=== PATIENT | male | born 1960 | race Caucasian/White ===

== ENCOUNTER 2023-08-15 18:24 | Outpatient (CLI) | payer OTHER, SELFPAY | END 2023-08-15 18:25 | disposition home or self-care (01) | LOC: NFLDUCREF 18:25 | PROVIDERS: PCP Family Medicine; Visit Provider Nurse Practitioner Family | DX: M79.605 Pain in left leg (principal); M79.89 Other specified soft tissue disorders | CPT/HCPCS: 85379 ==

== ENCOUNTER 2023-08-17 05:33 | Inpatient (IN) | payer OTHER, SELFPAY ==
[2023-08-17] VITALS (10 sets, daily range): BP systolic 114–140; BP diastolic 78–95; PULSE 63–83; RESP 16–18; TEMP 36.2–37; O2SAT 95–98; BMI 34.9
--- NOTE | 2023-08-17 06:09 | CRLHL7_ITS ---
For Patients: As a result of the Century Cures Act, medical imaging exams and procedure reports are released immediately into your electronic medical record. You may view this report before your referring provider. If you have questions, please contact your health care provider. INDICATION: Swelling, chronic DVT, on blood thinners COMPARISON: None available. All priors performed at an outside facility TECHNIQUE: Terry-scale, color, and duplex Doppler imaging of the examined veins. Compression and augmentation attempted where anatomically and clinically feasible. FINDINGS: Laterality: Left Examined veins: Common femoral, femoral, popliteal, peroneal, posterior tibial Greater saphenous Nonocclusive thrombus in the left proximal peroneal vein. This is asymmetric and may be chronic. Otherwise, the examined veins are patent with normal color Doppler flow and a normal venous waveform on duplex Doppler. Where possible, there is normal compression and normal augmentation of flow. The right common femoral vein was sampled for comparison and is normal. No waveform abnormalities to suggest central occlusion. IMPRESSION: Nonocclusive left proximal peroneal vein deep vein thrombus. Recommend comparison to any available prior imaging. Dictated by Jania Bee MD @ 08/17/2023 7:18:19 AM (Electronically Signed)
--- NOTE | 2023-08-17 06:12 | ED_ITS ---
HPI - General Adult General Chief complaint: Edema Stated complaint: cellulitis Time Seen by Provider: 08/17/23 05:50 Source: patient and family Mode of arrival: ambulatory Limitations: no limitations History of Present Illness HPI narrative: 63-year-old male presents to the emergency department with a 5-6 day history of tenderness and swelling in the left lower extremity. Does have a history of prior DVT in this leg and struggles with chronic edema. He has even been told that there was probably some chronic clot in that leg as well, last ultrasound was definitely over a year ago. He is on chronic Eliquis as a result. 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 He noticed feeling achy with chills on Sunday and then increased swelling in the leg. Redness has increased over the last few days. He was evaluated at [facility] 2 days ago, diagnosed with cellulitis. It sounds as though some blood work was performed but no ultrasound of the leg. He was told that his blood clotting blood tests were a little high. Uncertain of his baseline level though. It sounds like he was started on Keflex because he reports that he was told to take it 4 times daily. He started approximately 8:00 p.m. which is certainly over 24 hours from now but just barely not quite 36 hours. He reports that he continues to feel worse, the leg appears to be getting more red and more swollen. His shows me pictures from the previous day and her previously marked area of cellulitis and it certainly is expanding. Leg is tender but not severely painful. He is not diabetic, has no history of MRSA. He is not on any immunosuppressants. He does not believe that he is running true fevers. No specific trauma or injury, no broken skin. Did start the antibiotics and is taking them as prescribed. Has not needed any specific pain medication. Past medical history notable for a history of dermatomyositis, no longer on treatment for this. He also has the chronic DVT in the left leg. His only home medication is Eliquis. Denies any allergies. Nonsmoker. ROS is notable for the musculoskeletal, generalized symptoms as described above, otherwise denies times 12 systems. Related Data Home Medications Medication Instructions Recorded Confirmed apixaban 2.5 mg tablet (Eliquis) 2.5 mg PO BID 08/15/23 08/15/23 Previous Rx's Medication Instructions Recorded cephalexin 500 mg capsule 500 mg PO QID 10 days #40 caps 08/15/23 Allergies Allergy/AdvReac Type Severity Reaction Status Date / Time No Known Drug Allergies Allergy Verified 08/15/23 18:15 PFSH [facility] Social History Non-prescribed substance use: denies use Exam Const: Vital Signs, click to edit/add: Vital Signs - 24 hr 08/17/23 05:37 08/17/23 07:16 Temperature 97.2 F L Pulse Rate [Left P ulse Oximeter] 83 71 Respiratory Rate 16 18 Blood Pressure [Ri ght Upper Arm] 123/79 125/78 Pulse Oximetry 96 96 Oxygen Delivery Me thod Room Air Room Air Documenting provider has reviewed patient's vital signs: yes Common normals: no apparent distress and alert General appearance: cooperative, comfortable and well kempt Orientation/consciousness: Yes awake HENMT: Common normals: normocephalic and head/scalp atraumatic Head and scalp: normocephalic and atraumatic Face and sinus: normal facial exam Mouth: oral and palatal mucosa normal Eye: Common normals: conjunctivae normal General eye: normal appearance of both eyes Conjunctiva: conjunctiva(e) normal Neck & C-Spine: Common normals: full ROM General: normal visual inspection Resp: Common normals: normal respiratory effort, no use of accessory muscles and clear to auscultation bilaterally Effort & inspection: able to speak in complete sentences Auscultation: clear to auscultation bilaterally Cardio: Common normals: regular rate, regular rhythm, S1 normal heart sound, S2 normal heart sound and no murmurs Rate: regular rate Rhythm: regular rhythm Heart sounds: S1 normal and S2 normal GI: Common normals: Normal to inspection, nondistended, normoactive bowel sounds present, soft to palpation, non-tender, no hepatosplenomegaly and no masses Palpation: soft and no hepatosplenomegaly Extremity: Other: Right leg grossly normal in appearance. Left leg swollen, marked redness and warmth. Early skin changes and darkening concerning for early blister formation. Still has good capillary refill in the toes and good pedal pulses. Compared to the picture shown from his yesterday, the redness and swelling on the foot has certainly increased. No effusions in the knee or ankle joint. He can move these joints with no difficulty. Redness does not extend above the knee but does track along cited. No tenderness in the popliteal fossa. Neuro: Sensorium/orientation: awake and alert Speech: speech normal Motor exam: strength 5/5 throughout and no movement abnormalities noted Psych: Appearance: well kempt Activity/motor behavior: appropriate eye contact Mood and affect: euthymic mood Insight: insight good Judgement: judgment good Skin: Narrative: Redness, cellulitic area to the left lower extremity only, no other affected areas noted. Course Course ED Course: Known cellulitis with increased redness and swelling for the past 36 hours. It may be a little early to declare outpatient oral antibiotic failure but I do have significant concerns. Risk factors with chronic DVT may impair healing. Patient does not have significant risk factors for MRSA. I would like to draw some basic labs, get a repeat ultrasound of the left lower extremity, start Unasyn and tentatively plan for admission based on labs. Await findings. Trung wrap extremity. Reevaluation(s) Time of Reevaluation #1: 07:21 Reevaluation #1: spoke with radiology, agree with chronic, non occulusive clot. reviewed findings with patient and hospitalist. will admit for further care. Vital Signs Vital signs: Initial Vital Signs Temperature 97.2 F L 08/17/23 05:37 Temperature Source Temporal Artery Scan 08/17/23 05:37 Pulse Rate 83 08/17/23 05:37 Pulse Rhythm Regular 08/17/23 05:37 Respiratory Rate 16 08/17/23 05:37 Blood Pressure 123/79 08/17/23 05:37 Blood Pressure Mean 93 08/17/23 05:37 Blood Pressure Position Sitting 08/17/23 05:37 Pulse Oximetry 96 08/17/23 05:37 Oxygen Delivery Method Room Air 08/17/23 05:37 Vital Signs Temperature 97.2 F L 08/17/23 05:37 Pulse Rate 83 08/17/23 05:37 Respiratory Rate 16 08/17/23 05:37 Blood Pressure 123/79 08/17/23 05:37 Pulse Oximetry 96 08/17/23 05:37 Oxygen Delivery Method Room Air 08/17/23 05:37 Temperature 97.2 F L 08/17/23 05:37 Pulse Rate 71 08/17/23 07:16 Respiratory Rate 18 08/17/23 07:16 Blood Pressure 125/78 08/17/23 07:16 Pulse Oximetry 96 08/17/23 07:16 Oxygen Delivery Method Room Air 08/17/23 07:16 Medical Decision Making Lab Data Lab results reviewed: Yes I reviewed the patient's lab results Lab results narrative: No significant leukocytosis. Remainder of labs pending at time of admission Labs: Lab Results 08/17/23 Range/Units 06:30 WBC 9.81 (4.50-11.00) K/uL RBC 5.16 (4.30-5.90) m/uL Hgb 14.9 (13.5-17.5) gm/dL Hct 44.7 (37.0-53.0) % MCV 87 (80-100) fL MCH 29 (26-34) pg MCHC 33 (32-36) gm/dL RDW Coeff of Dm 13.8 (11.5-15.5) % Plt Count 239 (140-440) K/uL Neut % (Auto) 61.6 (42.0-72.0) % Lymph % (Auto) 22.7 (20-44) % [place] % (Auto) 12.6 H (0.0-11.0) % Eos % (Auto) 2.4 (0.0-7.0) % Baso % (Auto) 0.3 (0.0-3.0) % Neut # (Auto) 6.03 (1.7-7.0) K/uL Lymph # (Auto) 2.23 (0.90-2.90) K/uL [place] # (Auto) 1.20 H (0.00-0.90) K/UL Eos # (Auto) 0.24 (0.00-0.50) K/uL Baso # (Auto) 0.03 (0.00-0.30) K/uL Abs Immat Gran (auto) 0.04 (0.00-0.30) K/uL Imm/Tot Granulo (auto) 0.4 % Lactate 1.6 (0.5-1.9) mmol/L Imaging Data Venous US: Attestation: I have reviewed the pertinent imaging results. My impression: Left peroneal vein clot, nonocclusive. Per description, it is smaller than last finding Radiologist's impression: IMPRESSION: Nonocclusive left proximal peroneal vein deep vein thrombus. Recommend comparison to any available prior imaging. Dictated by Jania Bee MD @ 08/17/2023 7:18:19 AM Discharge Plan Discharge Clinical Impression: Chronic deep vein thrombosis (DVT) of left lower extremity, Cellulitis and abscess of left leg Patient Disposition: Admitted As Inpatient Condition: Stable
[2023-08-17] MEDS: AMPICILLIN/SULBACTAM 3 GM in 0.9 % SODIUM CHLORIDE Mini-bag 100 ML IVPB ×2 (06:35→09:13)
[2023-08-17 06:51] LABS: Lactate* 1.6 mmol/L (0.5-1.9)
[2023-08-17 07:01] LABS: Basophils Absolute Auto 0.03 K/uL (0.00-0.30); Basophils Percent Auto 0.3 % (0.0-3.0); Eosinophils Absolute Auto 0.24 K/uL (0.00-0.50); Eosinophils Percent Auto 2.4 % (0.0-7.0); Hematocrit 44.7 % (37.0-53.0); Hemoglobin* 14.9 gm/dL (13.5-17.5); Immature Granulocytes Abs Auto 0.04 K/uL (0.00-0.30); Immature Granulocytes Pct Auto 0.4 %; Lymphocytes Absolute Auto 2.23 K/uL (0.90-2.90); Lymphocytes Percent Auto 22.7 % (20-44); Mean Corpuscular HGB Conc 33 gm/dL (32-36); Mean Corpuscular Hemoglobin 29 pg (26-34); Mean Corpuscular Volume 87 fL (80-100); Monocytes Percent Auto 12.6 % (0.0-11.0); Neutrophils Absolute Auto 6.03 K/uL (1.7-7.0); Neutrophils Percent Auto 61.6 % (42.0-72.0); Platelet Count* 239 K/uL (140-440); RDW Coefficient of Variation % 13.8 % (11.5-15.5); Red Blood Count 5.16 m/uL (4.30-5.90); White Blood Count* 9.81 K/uL (4.50-11.00)
[2023-08-17 07:08] LABS: Slide Review Reflex No
[2023-08-17 07:20] LABS: Albumin* 3.6 g/dL (3.3-5.0); Chloride* 98 mmol/L (96-114); Potassium* 3.4 mmol/L (3.6-5.1); Sodium* 137 mmol/L (135-149)
[2023-08-17 07:22] LABS: Creatinine* 0.7 mg/dL (0.5-1.5); Estimated Glomerular Filt Rate 102 ml/min
[2023-08-17 07:23] LABS: Alanine Aminotransferase* 66 U/L (4-50); Alkaline Phosphatase* 146 U/L (40-150); Anion Gap 13 mEq/L (7-15); Aspartate Amino Transferase* 77 U/L (12-35); Bilirubin Total* 0.7 mg/dL (0.1-1.5); Blood Urea Nitrogen* 14 mg/dL (7-30); Calcium* 8.9 mg/dL (8.4-10.6); Carbon Dioxide* 26 mmol/L (20-32); Creatine Kinase* 35 U/L (54-186); Glucose* 125 mg/dL (60-115); Total Protein* 6.9 g/dL (6.0-8.3)
--- NOTE | 2023-08-17 07:36 | ED.NURSE ---
report given to raj alaniz. pt will transfer to room 251 via wheelchair with belongings.
[2023-08-17 07:38] LABS: C Reactive Protein* 14.9 mg/dL (0.5-1.0)
[2023-08-17 08:57] LABS: PCR FLU A Negative PCR FLU A (Negative); PCR FLU B Negative PCR FLU B (Negative); PCR RSV Negative PCR RSV (Negative)
[2023-08-17 09:02] LABS: SARS PCR* Negative SARS-CoV-2 (Negative)
[2023-08-17] MEDS: APIXABAN 5 MG TABLET PO ×2 (09:13→20:32)
[2023-08-17] MEDS: SODIUM CHLORIDE 0.9 % (FLUSH) 10 ML SYRINGE 5 ML IVF ×2 (10:00→20:32)
[2023-08-17] MEDS: ACETAMINOPHEN 325 MG TABLET PO (10:42)
--- NOTE | 2023-08-17 12:33 | P.IMHP_ITS ---
Hospitalist- H&P: HPI History of Present Illness Date Seen: 08/17/23 Chief complaint: cellulitis Narrative: Moises Amaya is a 63 year old male past medical history significant for chronic left lower extremity DVT, on chronic anticoagulation, dermatomyositis, GERD is admitted to the medical floor from the ED for further management left lower extremity cellulitis after failed outpatient therapy. Patient reports increasing redness and swelling of the left lower extremity over the last several days, worsening overnight. [place] feverish, sweating last night. Denies headaches or dizziness. No recent nausea vomiting. No change in bowels. Denies urinary symptoms. Had a telephone visit on 08/14, suspected to be COVID with possible positive home test. With worsening symptoms of the left leg on 08/15, was started on oral cephalexin. No improvement, instead worsening, since starting that antibiotic. Patient is a nonsmoker. Denies alcohol use. Review of Systems Narrative: REVIEW OF SYSTEMS: Complete review of systems performed and negative unless otherwise stated in HPI or below. PFSH [facility] Medical History GERD (gastroesophageal reflux disease) ?K21.9 - Gastro-esophageal reflux disease without esophagitis (ICD-10) Dermatomyositis ?M33.90 - Dermatopolymyositis, unspecified, organ involvement unspecified (ICD-10) Chronic deep vein thrombosis (DVT) ?I82.509 - Chronic embolism and thrombosis of unspecified deep veins of unspecified lower extremity (ICD-10) Social History What is your current living situation?: I presently have a place to live Problems where you live: no known problems Problems where you live details: NA In the past 12 months, utilities in danger of being shut off: no In past 12 months, lack of transportation kept you from medical appts, meetings, work, or getting things needed for daily living: no In the past 12 mos, have been you worried that your food would run out before you had money to buy more?: never true In the past 12 mos, the food you bought just didn't last and you didn't have money to buy more?: never true Highest level of school completed/degree received: Associate degree: occupational, technical, vocational program Smoking Status: Former smoker What tobacco products do you use: cigarettes Smoking quit date/years: >15 years ago Do you use any of these nicotine containing products: None Second hand tobacco smoke exposure: No How often do you have a drink containing alcohol: 2-4 times a month Alcohol type: beer How many standard drinks containing alcohol do you have on a typical day: 1 or 2 How often do you have six or more drinks on one occasion: Never AUDIT-C Alcohol total score: 2 Non-prescribed substance use: denies use Caffeine: Yes (coffee) How often does anyone, including family, friends and others, physically hurt you : never How often does anyone, including family, friends and others, insult or talk down to you: never How often does anyone, including family, friends and others, threaten you with harm: never How often does anyone, including family, friends and others, scream or curse at you: never service: No Meds Home Medications and Allergies Home Medications Medication Instructions Recorded Confirmed Type apixaban 2.5 mg tablet (Eliquis) 2.5 mg PO BID 08/15/23 08/17/23 History Allergies Allergy/AdvReac Type Severity Reaction Status Date / Time No Known Drug Allergies Allergy Verified 08/15/23 18:15 Exam Narrative: Exam Narrative: PHYSICAL EXAM General: Pleasant, conversant, NAD HEENT: Normocephalic, atraumatic, sclera white, EOMI, oral mucosa moist Cardiovascular: RRR, S1S2. Pulmonary: CTA bilaterally without rhonchi, rales, expiratory wheezes. No dyspnea Neurological: Alert, answering questions appropriately, cranial nerves intact, no focal findings Extremities: Left lower extremity with bright red erythema from just below the knee to the ankle, mild erythema of the foot, significant swelling. Most proxim al area of redness outline. Skin intact without active bleeding or drainage. AROMI. Neurovascularly intact Skin: Warm, dry. Const: Vital Signs, click to edit/add: Vital Signs - 24 hr 08/17/23 05:37 08/17/23 07:16 08/17/23 08:13 Temperature 97.2 F L 97.8 F Pulse Rate Pulse Rate [Left P ulse Oximeter] 83 71 Pulse Rate [Right Pulse Oximeter] 63 Respiratory Rate 16 18 18 Blood Pressure [Ri ght Arm] 135/93 H Blood Pressure [Ri ght Upper Arm] 123/79 125/78 Pulse Oximetry 96 96 98 Oxygen Delivery Me thod Room Air Room Air Room Air 08/17/23 08:18 08/17/23 08:18 Temperature Pulse Rate 67 Pulse Rate [Left P ulse Oximeter] Pulse Rate [Right Pulse Oximeter] Respiratory Rate 18 Blood Pressure [Ri ght Arm] Blood Pressure [Ri ght Upper Arm] Pulse Oximetry 98 Oxygen Delivery Me thod Room Air Hospitalist - H&P: Result Labs Labs: Short CBC 08/17/23 Range/Units 06:30 WBC 9.81 (4.50-11.00) K/uL Hgb 14.9 (13.5-17.5) gm/dL Hct 44.7 (37.0-53.0) % Plt Count 239 (140-440) K/uL BMP 08/17/23 06:30 Sodium 137 Potassium 3.4 L Chloride 98 Carbon Dioxide 26 BUN 14 Creatinine 0.7 Glucose 125 H Calcium 8.9 Cardiac Enzymes 08/17/23 Range/Units 06:30 Total Creatine Kinase 35 L (54-186) U/L Liver Function 08/17/23 Range/Units 06:30 Total Bilirubin 0.7 (0.1-1.5) mg/dL AST 77 H (12-35) U/L ALT 66 H (4-50) U/L Alkaline Phosphatase 146 (40-150) U/L Albumin 3.6 (3.3-5.0) g/dL Assessment and Plan Assessment and plan (1) Cellulitis and abscess of left leg: Problem comment: -no leukocytosis, afebrile. Received 1 dose of Unasyn in the ED -start cefazolin 1 g q.8 hours -pain medication as needed -continue to monitor Status: Acute (2) Chronic deep vein thrombosis (DVT) of left lower extremity: Problem comment: -in setting of dermatomyositis. On chronic anticoagulation. -questionable acute thrombus of the left peroneal vein. Previous ultrasound, 03/05, shows chronic DVT of the left popliteal without evidence of peroneal thrombus -increase Eliquis to 5 mg b.i.d., previously decreased to 2.5 mg by PCP in the past year Status: Acute Plan Mild lab abnormalities noted including potassium 3.4, glucose 125, AST 77, ALT 66. Recheck in a.m. CODE: Full as discussed with patient VTE PPX: Apixaban Disposition: Inpatient
[2023-08-17] MEDS: CEFAZOLIN 2 GM in 0.9 % SODIUM CHLORIDE Mini-bag 100 ML IVPB ×2 (13:00→20:33)
--- NOTE | 2023-08-17 14:53 | PC.NURSE ---
Addendum entered by Bhavna Arriaga RN 08/17/23 15:14: Pt states he took 2.5 mg Eliquis at home. Hospitalist approved the 5 mg Eliquis here. Pt also ambulating in naranjo, tolerated well. Original Note: Nursing Care Hours: [id number] Pt this shift arrived from ED, alert and oriented, calm and cooperative. Independent ambulation. C/o pain 4/10 to LLE while walking and standing. LLE deep red within outline boarder, warm to touch, skin taut and leg edematous. Later in shift, pt pointed out small closed blisters anterior portion of LLE. Associate Pathologist educated pt on fluid in the tissue and possibility of it causing weeping and blisters. Advised pt to keep leg elevated above level heart as much as possible. Associate Pathologist observed pt compliance. VSS, tele shows NSR. No BM this shift. Eating, drinking and voiding WNL. Acetaminophen given for 1/10 headache and LLE pain.
--- NOTE | 2023-08-17 17:28 | PC.NURSE ---
Care Hours [id number]... Alert and orientated, patient is pleasant and cooperative. IV to R forearm. The patient showered this evening.. telemetry was put back on after. The patient reported no pain in his LLE even when he ambulated this evening. LLE is warm to touch, edematous, and has a significant amount of erythema that is within the outlined wound site... small scaly lesions are on top of the LE patient reports these are new... but no weeping present. He reports he thinks that the antibiotics are working now. VSS on RA.. Up independent in the room. Call light within reach.
[2023-08-18 03:55] VITALS: BP 123/77; PULSE 70; RESP 18; TEMP 36.8; O2SAT 94
[2023-08-18] MEDS: CEFAZOLIN 2 GM in 0.9 % SODIUM CHLORIDE Mini-bag 100 ML IVPB ×2 (04:59→12:13)
--- NOTE | 2023-08-18 05:09 | PC.NURSE ---
END OF SHIFT NOTE: PT PLEASANT AND COOPERATIVE. A&Ox3. DENIES CP, SOB, N/V. AMBULATES INDEPENDENTLY WITHIN ROOM. VSS ON RA; AFEBRILE. LLE IS WARM, TENDER TO TOUCH, WITH ERYTHEMA AND SWELLING. ERYTHEMA HAS BEEN OUTLINED; IT HAS NEITHER RECEDED OR ADVANCED PASSED THE MARKED BOARDER. PT RATES LLE PAIN 1-4/10; SOME RELIEF WITH ELEVATION AND REST. TELE READS NSR.?CALL LIGHT WITHIN PT?S REACH.?
[2023-08-18 07:27] LABS: Hemoglobin* 13.7 gm/dL (13.5-17.5); Mean Corpuscular HGB Conc 33 gm/dL (32-36); Mean Corpuscular Hemoglobin 29 pg (26-34); Mean Corpuscular Volume 89 fL (80-100); Platelet Count* 246 K/uL (140-440); Red Blood Count 4.74 m/uL (4.30-5.90); White Blood Count* 9.45 K/uL (4.50-11.00)
[2023-08-18 08:00] VITALS: BP 124/81; PULSE 67; RESP 16; TEMP 36.8; O2SAT 97
[2023-08-18 08:06] LABS: Slide Review Reflex No
[2023-08-18 08:16] LABS: Albumin* 3.2 g/dL (3.3-5.0); Chloride* 105 mmol/L (96-114); Sodium* 138 mmol/L (135-149)
[2023-08-18 08:19] LABS: Creatinine* 0.7 mg/dL (0.5-1.5); Est. Creatinine Clearance* 66.46; Estimated Glomerular Filt Rate 102 ml/min
[2023-08-18 08:20] LABS: Alanine Aminotransferase* 79 U/L (4-50); Alkaline Phosphatase* 176 U/L (40-150); Anion Gap 5 mEq/L (7-15); Aspartate Amino Transferase* 69 U/L (12-35); Bilirubin Direct* 0.1 mg/dL (0.0-0.5); Bilirubin Total* 0.7 mg/dL (0.1-1.5); Blood Urea Nitrogen* 11 mg/dL (7-30); Calcium* 8.3 mg/dL (8.4-10.6); Carbon Dioxide* 28 mmol/L (20-32); Glucose* 101 mg/dL (60-115); Total Protein* 6.2 g/dL (6.0-8.3)
[2023-08-18 08:22] LABS: C Reactive Protein* 7.9 mg/dL (0.5-1.0)
[2023-08-18] MEDS: APIXABAN 5 MG TABLET PO (08:50)
[2023-08-18] MEDS: SODIUM CHLORIDE 0.9 % (FLUSH) 10 ML SYRINGE 5 ML IVF (08:50)
[2023-08-18 09:00] VITALS: PULSE 73
--- NOTE | 2023-08-18 12:08 | PM.DS1 ---
DS: Providers Provider Date Seen: 08/18/23 Date of admission: 08/17/23 07:37 Primary care physician: Justino Logan MD Admitting Clinician: Fouzia Ballesteros PA-C Attending Physician on discharge: Héctor Gil MD Date of Discharge: 08/18/23 DS: Diagnosis Discharge Diagnosis (1) Chronic deep vein thrombosis (DVT) of left lower extremity: Status: Acute Problem details: -in setting of dermatomyositis. On chronic anticoagulation. -questionable acute thrombus of the left peroneal vein. Previous ultrasound, 03/05, shows chronic DVT of the left popliteal without evidence of peroneal thrombus -increase Eliquis to 5 mg b.i.d., previously decreased to 2.5 mg by PCP in the past year (2) Cellulitis and abscess of left leg: Status: Acute Problem details: -no leukocytosis, afebrile. Received 1 dose of Unasyn in the ED -start cefazolin 1 g q.8 hours -pain medication as needed -continue to monitor DS: Summary Hospital Course Hospital Course: 63-year-old male with history of left lower extremity DVT and cellulitis is admitted the hospital with several days of left lower extremity pain, swelling, redness and fever. He was seen in clinic the day prior to admission where he was diagnosed with left lower extremity cellulitis and started on cephalexin. Seeing no improvement he came to the emergency room and was admitted to the hospital. In the hospital he was treated with Ancef. He has not had any further fevers but still has marked redness and swelling and pain in his left lower extremity. He also went through ultrasound of the left lower extremity which showed a nonocclusive clot in his left leg. This was clinically suspected to be chronic. His Eliquis was increased from 2.5 mg b.i.d. to 5 mg b.i.d. pending outpatient followup. Patient is clearly high risk for recurrent DVT but probably his current problem is not due to a new DVT, just his cellulitis. Status at Discharge Functional status at discharge: independent ambulation Overall status at discharge: patient is progressing back to baseline Time Spent with Patient Time attestation: Total time spent providing and/or coordinating discharge services: Time spent: Greater than 30 minutes Exam Narrative: Exam Narrative: Left lower extremity is markedly erythematous and swollen especially in comparison to the right. Is mildly tender to palpation. There is no open skin lesion. He has intact pedal pulses. No focus of abscess. Const: Vital Signs, click to edit/add: Vital Signs - 24 hr 08/17/23 12:30 08/17/23 15:30 08/17/23 15:45 Temperature 98.2 F Pulse Rate 73 Pulse Rate [Right Pulse Oximeter] 80 73 Respiratory Rate 18 16 Blood Pressure [Ri ght Arm] 114/89 136/85 Pulse Oximetry 96 96 Oxygen Delivery Me thod Room Air Room Air 08/17/23 18:20 08/17/23 18:20 08/17/23 19:00 Temperature Pulse Rate 69 Pulse Rate [Right Pulse Oximeter] 75 75 Respiratory Rate 16 16 Blood Pressure [Ri ght Arm] 140/95 H Pulse Oximetry 95 Oxygen Delivery Me thod Room Air 08/17/23 23:35 08/18/23 03:55 08/18/23 08:00 Temperature 98.6 F 98.2 F 98.3 F Pulse Rate Pulse Rate [Right Pulse Oximeter] 69 70 67 Respiratory Rate 16 18 16 Blood Pressure [Ri ght Arm] 123/80 123/77 124/81 Pulse Oximetry 95 94 97 Oxygen Delivery Me thod Room Air Room Air Room Air Documenting provider has reviewed patient's vital signs: yes DS: Data Data Completed and Pending Labs on day of discharge: Labs from last 24 hours 08/18/23 05:50 WBC 9.45 RBC 4.74 Hgb 13.7 Hct 42.0 MCV 89 MCH 29 MCHC 33 Plt Count 246 Sodium 138 Potassium 4.0 Chloride 105 Carbon Dioxide 28 Anion Gap 5 L BUN 11 Creatinine 0.7 Estimated Creat Clear 66.46 Estimated GFR 102 Glucose 101 Calcium 8.3 L Total Bilirubin 0.7 Direct Bilirubin 0.1 AST 69 H ALT 79 H Alkaline Phosphatase 176 H C-Reactive Protein 7.9 H Total Protein 6.2 Albumin 3.2 L Preliminary micro results at discharge 08/17/23 07:08 Blood Culture - Preliminary Blood NO GROWTH AFTER 24 HOURS 08/17/23 06:30 Blood Culture - Preliminary Blood NO GROWTH AFTER 24 HOURS Imaging Venous US: Radiologist's impression: INDICATION: Swelling, chronic DVT, on blood thinners COMPARISON: None available. All priors performed at an outside facility TECHNIQUE: Terry-scale, color, and duplex Doppler imaging of the examined veins. Compression and augmentation attempted where anatomically and clinically feasible. FINDINGS: Laterality: Left Examined veins: Common femoral, femoral, popliteal, peroneal, posterior tibial Greater saphenous Nonocclusive thrombus in the left proximal peroneal vein. This is asymmetric and may be chronic. Otherwise, the examined veins are patent with normal color Doppler flow and a normal venous waveform on duplex Doppler. Where possible, there is normal compression and normal augmentation of flow. The right common femoral vein was sampled for comparison and is normal. No waveform abnormalities to suggest central occlusion. IMPRESSION: Nonocclusive left proximal peroneal vein deep vein thrombus. Recommend comparison to any available prior imaging. Discharge Plan Discharge Disposition: Home, Self-Care Date of Admission: 08/17/23 07:37 Attending Provider on Discharge: Moncho Gil Primary Care Provider: Justino Logan Condition: Stable Anticipated Discharge Date/Time: 08/18/23 13:00 Discharge Medications: Continued cephalexin 500 mg capsule 500 mg PO QID 10 Days Qty: 40 0RF Changed Eliquis 2.5 mg tablet 5 mg PO BID Qty: 60 0RF Discharge Orders: Discharge Order (Routine); Ordered 08/18/23 Ordered By: Moncho Gil Patient Education: Cephalexin (By mouth) (Bio-Cef, Keflex), Apixaban (By mouth) (Eliquis), Cellulitis (GEN) Additional Instructions: I expect the cellulitis in your left leg to slowly improve. Continue taking cephalexin for this. Also continue to wear compression stockings on the left leg and elevate the left leg as much as possible. Increase your Eliquis to 5 mg twice a day until you see your doctor. Return to the hospital if you get worse, especially if you get fever. Discharge Diet: Regular Follow Up Appointments: Caitlin Nelson PA-C [Referring] - 08/21/23 7:25 am ([facility] for follow-up.) Justino Logan MD [Primary Care Provider] - (4-6 days) Forms: [facility] Info Instructions
--- NOTE | 2023-08-18 14:08 | PC.NURSE ---
Discharge Note: The patient discharged home with his @ 1320 this afternoon. IV ABX was last infused @ 1245. Patient is to complete oral ABX from prior clinic visit. TOMMIE stocking is in place on LLE... Reported mild pain 2-4/10 throughout the morning denied Tylenol. Elevated LLE throughout the day as well. Educated the patient and his regarding follow up if redness goes beyond outlined markings, if he spikes a fever, and if his LLE starts to have open wounds. All questions were answered. All belongings and discharge paperwork were sent with the patient. I wheeled him out to his vechile. Ambulating well and was independent during his stay in the Hospital. Nat ROBBINS, RN
== END 2023-08-18 13:20 | disposition home or self-care (01) | DRG 603 ==
LOC: ED 07:25 → MEDSURG 07:39
PROVIDERS: Admitting Provider Physician Assistant; Emergency Provider Family Medicine; PCP Family Medicine; Visit Provider Physician Assistant
DX: L03.116 Cellulitis of left lower limb (principal); I82.532 Chronic embolism and thrombosis of left popliteal vein; I82.452 Acute embolism and thrombosis of left peroneal vein; M33.90 Dermatopolymyositis, unspecified, organ involvement unspecified; L02.416 Cutaneous abscess of left lower limb; Z79.01 Long term (current) use of anticoagulants
CPT/HCPCS: 36415; 80048; 80053; 80076; 82550; 83605; 85025; 85027; 86140; 87040; 87631; 93971; 99284; A9270; J0295; J0690